=== PATIENT | male | born 1950 | race African-American/Black ===

== ENCOUNTER 2017-09-08 05:09 | Day surgery (SDC) | payer OTHER ==
[2017-09-08] MEDS ORDERED: PROPOFOL 20 ML ONE ×4 (07:31→13:59)
[2017-09-08] MEDS ORDERED: LIDOCAINE HCL/PF 2% SDV 5ML VIAL ONE (07:31)
[2017-09-08] MEDS ORDERED: MIDAZOLAM HCL 2 MG/2 ML SINGLE DOSE VIAL ONE (07:32)
[2017-09-08] MEDS ORDERED: SUCCINYLCHOLINE CHLORIDE 200 MG/10 ML VIAL ONE (07:32)
[2017-09-08 09:27] VITALS: BMI 33.9
[2017-09-08] MEDS ORDERED: ROCURONIUM BROMIDE 50 MG/5 ML VIAL ONE (13:59)
[2017-09-08] MEDS ORDERED: NEOSTIGMINE METHYLSULFATE 0.5 MG/1 ML - 10 ML MDV ONE (15:01)
[2017-09-08] MEDS ORDERED: GLYCOPYRROLATE 0.2 MG/1 ML VIAL ONE ×2 (15:01)
--- NOTE | 2017-09-08 15:30 | OP ---
Operative Note - Note: Operative Date: 09/08/17 Pre-Operative Diagnosis: bladder tumor Operation: transurethral resection and vaporization of bladder tumor Findings: 8 cm area of dysplasia with tumor focus resected for pathology Post-Operative Diagnosis: Same as Pre-op Surgeon: Ramon Pepper Anesthesia: General
[2017-09-08] MEDS ORDERED: PROPOFOL 1000 MG/100 ML VIAL IVPB ONE (16:25)
[2017-09-08] MEDS ORDERED: LACTATED RINGERS SOLUTION 1,000 ML IV SCH (16:30)
[2017-09-08] MEDS ORDERED: PROPOFOL 1,000,000 MCG/100 ML VIAL IVPB SCH (16:30)
[2017-09-08 16:56] LABS: ARTERIAL BLD GAS O2 SATURATION 97.5 % (90-98.9)
[2017-09-08 16:59] LABS: ARTERIAL BLOOD GAS pH 7.24 (7.35-7.45)
[2017-09-08 17:00] LABS: ALLENS TEST POSITIVE; ARTERIAL BLOOD GAS PCO2 64.5 mmHg (35-45)
[2017-09-08 19:33] VITALS: TEMP 97.7
[2017-09-08 19:59] VITALS: BP 144/86; PULSE 71
--- NOTE | 2017-09-08 20:55 | OP ---
DATE OF OPERATION: 09/08/2017 PREOPERATIVE DIAGNOSIS: Bladder tumor. POSTOPERATIVE DIAGNOSIS: Bladder tumor. PROCEDURE: Transurethral resection and transurethral vaporization of bladder tumor. ATTENDING: Jennifer Rai MD ANESTHESIA: General. DESCRIPTION OF OPERATION: The patient was brought in the operating room, placed in supine position on the operating room table. General anesthesia and preoperative antibiotics were administered. At this point, the patient was placed in the dorsal lithotomy position and prepped and draped in the usual sterile manner. Cystoscopy was performed, and a right lateral wall bladder tumor was noted. The tumor had significant dysplasia involving an 8 x 4 cm area along the right lateral wall. At this point, a resectoscope was utilized. Utilizing the [employer] system, a loop element was utilized and the resectoscope. A technical sales representatives portion of the tumor was resected and sent for pathologic evaluation. Because the patient is a high-risk patient, it was decided to vaporize the residual tumor and dysplasia around the tumor. Utilizing the button element of the [employer] system, a vaporization of the bladder tumor was performed in the previously described area. The level of the vaporization was to the level of the deep muscle of the bladder. No complications were noted. Excellent hemostasis was obtained. The patient was left to Abad catheter straight drainage. No complications were noted. The disposition of the patient was to the recovery room. JENNIFER RAI M.D. /[id number]
--- NOTE | 2017-09-10 13:42 | PATH ---
Surgical Pathology Report Patient Name: NUVIA ROSAS [facility]. Rec. #: [id number] /Age/Gender: 1950 (Age: 66) / M Account: [id number] Location: [facility] SURGICAL Taken: 09/08/2017 Received: 09/09/2017 Reported: 09/10/2017 Physicians: Ramon Pepper Specimen(s) Received BLADDER TUMOR Clinical History Neoplasm of uncertain behavior of bladder Final Diagnosis BLADDER, TUMOR, TRANSURETHRAL RESECTION AND VAPORIZATION OF BLADDER TUMOR: LOW GRADE PAPILLARY UROTHELIAL CARCINOMA, NON-INVASIVE. NO MUSCULARIS PROPRIA IDENTIFIED. NO FLAT CARCINOMA IN SITU (CIS) IDENTIFIED. Comment: Findings discussed with Dr. Pepper. Electronically Signed Rose Souza M.D. Gross Description Received in formalin labeled "bladder tumor," is a 0.6 x 0.6 x 0.2 cm aggregate of matt soft tissue fragments. The formalin is filtered and the specimen is entirely submitted in one cassette. /09/09/2017 saudi09/09/2017
== END 2017-09-08 20:15 | disposition home or self-care (01) ==
LOC: JASU-SURG 05:09
PROVIDERS: ATTEND Urology
PROC: 0TBB8ZX Excision of Bladder, Via Natural or Artificial Opening Endoscopic, Diagnostic (ICD-10-PCS; principal; 2017-09-08 08:00)
DX: C67.9 Malignant neoplasm of bladder, unspecified (principal)
CPT/HCPCS: 36600; 71045-TC-FY; 82803; 88305-TC; 94002; 94760